=== PATIENT | female | born 1965 | race Two or more races ===

== ENCOUNTER 2021-10-16 04:31 | Day surgery (SDC) | payer OTHER ==
[2021-10-15 10:24] VITALS: BMI 27.2
[2021-10-16] MEDS ORDERED: PROPOFOL 20 ML ONE (15:57)
[2021-10-16] MEDS ORDERED: LIDOCAINE HCL/PF 2% SDV 5ML VIAL ONE (15:57)
[2021-10-16] MEDS ORDERED: MIDAZOLAM HCL 2 MG/2 ML SINGLE DOSE VIAL ONE (15:58)
[2021-10-16] MEDS ORDERED: ceFAZolin SODIUM 1 GM VIAL ONE (16:25)
[2021-10-16] MEDS ORDERED: DEXAMETHASONE SOD PHOSPHATE 4 MG/1 ML VIAL ONE ×2 (16:25→17:04)
[2021-10-16] MEDS ORDERED: ceFAZolin 2 GRAM PREMIX BAG IVPB ONE (16:25)
[2021-10-16] MEDS ORDERED: KETOROLAC TROMETHAMINE 30 MG/1 ML VIAL ONE (16:25)
[2021-10-16] MEDS ORDERED: LACTATED RINGERS SOLUTION 1,000 ML IV SCH ×2 (16:30)
[2021-10-16] MEDS ORDERED: IOHEXOL 300 MG/ML INFUS..BTL IV ONE (16:37)
[2021-10-16] MEDS ORDERED: LABETALOL HCL 5 MG/1 ML (100MG/20 ML VIAL) ONE (17:07)
[2021-10-16] MEDS ORDERED: LABETALOL HCL 5 MG/1 ML (100MG/20 ML VIAL) IVPUSH ONE (17:10)
[2021-10-16] MEDS ORDERED: oxyCODONE HCL 5 MG TABLET PO ONE (18:50)
[2021-10-16] MEDS ORDERED: oxyCODONE HCL 5 MG TABLET ONE (18:53)
[2021-10-16 19:18] VITALS: TEMP 97.4
[2021-10-16 19:19] VITALS: BP 142/72; PULSE 70
== END 2021-10-16 19:25 | disposition home or self-care (01) ==
LOC: JASU-SURG 04:31
PROVIDERS: ATTEND Urology
PROC: 0TC48ZZ Extirpation of Matter from Left Kidney Pelvis, Via Natural or Artificial Opening Endoscopic (ICD-10-PCS; principal; 2021-10-16 12:00)
PROC: 0T778DZ Dilation of Left Ureter with Intraluminal Device, Via Natural or Artificial Opening Endoscopic (ICD-10-PCS; 2021-10-16 12:00)
DX: N20.0 Calculus of kidney (principal)
CPT/HCPCS: 76000-TC-FY; 88300-TC; 94760